=== PATIENT | female | born 1985 | race Caucasian/White ===

== ENCOUNTER 2018-12-14 03:41 | Emergency (ER) | payer MEDICAID ==
[2018-12-14 04:27] LABS: ADD MAN DIFF? NO
[2018-12-14 04:29] LABS: BASOPHILS % 0.2 % (0.0-2.0); EOSINOPHILS # 0.3 10^3/ul (0.0-0.5); EOSINOPHILS % 2.9 % (0.0-7.0); HEMATOCRIT 36.1 % (37.0-47.0); HEMOGLOBIN 11.7 g/dl (12.0-16.0); LYMPHOCYTES # 3.2 10^3/ul (0.8-2.9); LYMPHOCYTES % 35.3 % (15.0-51.0); MEAN CORPUSCULAR HEMOGLOBIN 31.6 pg (29.0-33.0); MEAN CORPUSCULAR HGB CONC 32.4 g/dl (32.0-37.0); MEAN CORPUSCULAR VOLUME 97.6 fl (82.0-101.0); MONOCYTE # 0.7 10^3/ul (0.3-0.9); MONOCYTES % 8.1 % (0.0-11.0); NEUTROPHIL # 4.8 10^3/ul (1.6-7.5); NEUTROPHILS % 53.2 % (39.0-77.0); PLATELET COUNT 271 10^3/UL (140-415); RED CELL DISTRIBUTION WIDTH 12.6 % (11.5-14.5)
[2018-12-14] MEDS: SOD CHLORIDE 0.9% 1,000 ML IV (04:45)
[2018-12-14] MEDS: ACETAMINOPHEN 500 MG TAB PO (04:47)
[2018-12-14 04:57] LABS: INR 0.94; PROTIME 12.7 Sec (11.9-14.9)
[2018-12-14 04:59] LABS: ALANINE AMINOTRANSFERASE 33 IU/L (13-69); ALBUMIN 4.1 g/dl (3.3-4.9); ALBUMIN/GLOBULIN RATIO 1.28; ALKALINE PHOSPHATASE 46 IU/L (42-121); AMYLASE 80 U/L (11-123); ANION GAP 13 (5-13); ASPARTATE AMINO TRANSFERASE 24 IU/L (15-46); BILIRUBIN,INDIRECT 0.2 mg/dl (0-1.1); BILIRUBIN,TOTAL 0.2 mg/dl (0.2-1.3); BLOOD UREA NITROGEN 7 mg/dl (7-20); CALCIUM 9.2 mg/dl (8.4-10.2); CARBON DIOXIDE 21 mmol/L (21-31); CHLORIDE 105 mmol/L (97-110); CREATININE 0.52 mg/dl (0.44-1.00); Estimated GFR > 60 mL/min (>60); GLUCOSE 90 mg/dl (70-220); LIPASE 77 U/L (23-300); POTASSIUM 3.5 mmol/L (3.5-5.1); SODIUM 139 mmol/L (135-144); TOTAL PROTEIN 7.3 g/dl (6.1-8.1)
[2018-12-14 05:01] LABS: ADD UMIC YES; UR ASCORBIC ACID NEGATIVE (NEGATIVE); UR BACTERIA FEW /HPF (NONE SEEN); UR BILIRUBIN (Dip) NEGATIVE (NEGATIVE); UR BLOOD (Dip) 3+ mg/dL (NEGATIVE); UR CLARITY SLIGHTLY CLOUDY (CLEAR); UR COLOR YELLOW (YELLOW); UR GLUCOSE (Dip) NEGATIVE (NEGATIVE); UR KETONES (Dip) NEGATIVE (NEGATIVE); UR LEUKOCYTE ESTERASE (Dip) NEGATIVE Leu/ul (NEGATIVE); UR MUCUS FEW /HPF (NONE SEEN); UR NITRITE (Dip) NEGATIVE (NEGATIVE); UR RBC > 182 /HPF (0-5); UR SPECIFIC GRAVITY (Dip) 1.016 (1.003-1.030); UR SQUAMOUS EPITHELIAL CELL FEW /HPF (FEW); UR TOTAL PROTEIN (Dip) NEGATIVE (NEGATIVE); UR UROBILINOGEN (Dip) NEGATIVE (NEGATIVE); UR WBC 0 /HPF (0-5)
== END 2018-12-14 06:00 | disposition home or self-care (01) ==
LOC: FTE 03:41
DX: O20.9 Hemorrhage in early pregnancy, unspecified (principal); O26.891 Other specified pregnancy related conditions, first trimester; R10.2 Pelvic and perineal pain; Z3A.01 Less than 8 weeks gestation of pregnancy
CPT/HCPCS: 76801; 76817; 80053; 81001; 82150; 83690; 84702; 85025; 85610; 85730; 86900; 86901; 87086; 96360; 99285-25